=== PATIENT | female | born 1960 | race Caucasian/White ===

== ENCOUNTER 2018-11-10 07:27 | Day surgery (SDC) | payer BC ==
[~2018-11-10] VITALS: Ht 175.3 cm; Wt 100.0 kg
[2018-11-10 07:47] VITALS: BP 150/81; PULSE 53; TEMP 97.6
[2018-11-10] MEDS ORDERED: CELEXA 20MG20 MG/TAB PO (07:55)
[2018-11-10] MEDS ORDERED: SYNTHROID0.137 MG PO (07:55)
[2018-11-10] MEDS ORDERED: BENTYL 10MG10 MG/CAP PO (08:59)
[2018-11-10 09:10] VITALS: BP 155/74; PULSE 46
--- NOTE | 2018-11-10 09:10 | NUR ---
Patient returns to [facility] [address] per cart and transfers from cart to recliner. IV fluids infusing RH and site is free of redness. Call light in reach. Denies pain or nausea. Given cranberry juice to drink.
[2018-11-10 09:25] VITALS: BP 158/76; PULSE 50
--- NOTE | 2018-11-10 09:25 | NUR ---
Room air sats 95%. Temp 97.3. Eating muffin and drinking coffee. Continues to deny abdominal pain.
[2018-11-10 09:40] VITALS: BP 142/78; PULSE 49
--- NOTE | 2018-11-10 09:40 | NUR ---
Tolerated muffin, coffe, and juice. Continues to deny pain or nausea.
--- NOTE | 2018-11-10 09:50 | NUR ---
IV discontinued and given patient dresses self.
--- NOTE | 2018-11-10 10:02 | NUR ---
Given dismissal instructions and voices understanding of these. Patient wishes to make own follow up appointment after checking calendar at home. Patient dismissed to home driven by father and taken to the front door per wheelchair.
== END 2018-11-10 10:02 | disposition home or self-care (01) ==
LOC: SDCO 07:27
DX: K57.30 Diverticulosis of large intestine without perforation or abscess without bleeding (principal); K64.0 First degree hemorrhoids; R19.7 Diarrhea, unspecified; Z90.710 Acquired absence of both cervix and uterus; J45.909 Unspecified asthma, uncomplicated; M19.90 Unspecified osteoarthritis, unspecified site; E03.9 Hypothyroidism, unspecified; Z87.442 Personal history of urinary calculi; Z83.79 Family history of other diseases of the digestive system; Z79.899 Other long term (current) drug therapy; F32.9 Major depressive disorder, single episode, unspecified; E78.5 Hyperlipidemia, unspecified; Z88.0 Allergy status to penicillin
CPT/HCPCS: J2704; J7030